=== PATIENT | female | born 1980 | race Caucasian/White ===

== ENCOUNTER 2020-08-07 10:54 | Emergency (ER) | payer OTHER ==
--- NOTE | 2020-08-07 11:47 | ER ---
Nurse's Notes [facility] Name: Melissa Tran Age: 39 yrs Sex: Female : 1980 Arrival Date: 08/07/2020 Time: 10:57 Bed 25 Private MD: Diagnosis: Cutaneous abscess of face Presentation: 08/07 11:23 Chief complaint: Patient states: about two days ago I noticed a large zit on my chin iw and i tried to squeeze it and a bunch or green stuff came out and i feel like its moving down under my chin. Coronavirus screen: Client denies travel out of the [place] in the last 14 days. Ebola Screen: Patient negative for fever greater than or equal to 101.5 degrees Fahrenheit, and additional compatible Ebola Virus Disease symptoms. 11:23 Method Of Arrival: Ambulatory iw 11:25 Initial Sepsis Screen: Does the patient meet any 2 criteria? No. Patient's initial iw sepsis screen is negative. Does the patient have a suspected source of infection? No. Patient's initial sepsis screen is negative. Risk Assessment: Do you want to hurt yourself or someone else? Patient reports no desire to harm self or others. Onset of symptoms was August 04, 2020. Care prior to arrival: None. 11:31 Acuity: CHRISTI 4 iw Triage Assessment: 11:26 General: Appears in no apparent distress. uncomfortable, well groomed, well developed, iw well nourished, Behavior is calm, cooperative. Pain: Complains of pain in submental area and right submandibular area Pain radiates to neck Pain currently is 10 out of 10 on a pain scale. Quality of pain is described as throbbing. EENT: Oral mucosa is moist. Poor dentition noted. Neuro: No deficits noted. Cardiovascular: No deficits noted. Respiratory: No deficits noted. GI: No deficits noted. No signs and/or symptoms were reported involving the gastrointestinal system. : No deficits noted. No signs and/or symptoms were reported regarding the genitourinary system. Derm: Skin is intact, is healthy with good turgor, has lesions on large open lesion to the bottom of the right chin. Musculoskeletal: No deficits noted. No signs and/or symptoms reported regarding the musculoskeletal system. 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 - Social history:: Smoking status: Patient reports the use of cigarette tobacco products, smokes one-half pack cigarettes per day. Screenin: Abuse screen: Denies threats or abuse. Denies injuries from another. Nutritional iw screening: No deficits noted. Tuberculosis screening: No symptoms or risk factors identified. Fall Risk None identified. Assessment: 11:30 General: Appears in no apparent distress. Behavior is calm, cooperative. Pain: iw Complains of pain in chin and neck. Neuro: Level of Consciousness is awake, alert, obeys commands, Oriented to person, place, time, situation. Cardiovascular: Patient's skin is warm and dry. Respiratory: Respiratory effort is even, unlabored. Derm: Skin is intact, is healthy with good turgor, Abscess located on chin and submental area. Vital Signs: 11:23 BP 108 / 80; Pulse 76; Resp 18; Temp 98.0; Pulse Ox 99% on R/A; Weight 72.57 kg (R); iw Height 5 ft. 6 in. (167.64 cm); Pain 10; 11:23 Body Mass Index 25.82 (72.57 kg, 167.64 cm) iw ED Course: 10:57 Patient arrived in ED. ag5 11:25 Triage completed. iw 11:26 Arm band placed on right wrist. iw 11:27 [facility]ill[facility] Wilson [facility]C [facility]. kb 11:27 Bebo Lawrence MD is Attending Physician. kb 11:30 Patient has correct armband on for positive identification. iw 11:37 Avelina Cabrera, RN is Primary Nurse. iw 12:01 No provider procedures requiring assistance completed. Patient did not have IV access iw during this emergency room visit. Administered Medications: No medications were administered Outcome: 11:47 Discharge ordered by . kb 12:01 Discharged to home ambulatory, with family. iw 12:01 Condition: good 12:01 Discharge instructions given to patient, Instructed on discharge instructions, follow up and referral plans. medication usage, Demonstrated understanding of instructions, follow-up care, medications, Prescriptions given X 1. 12:02 Patient left the ED. ca1 Signatures: Lillie Wilson, [employer] DEVELOPMENT TRAINER-Avelina Urias, RN RN iw Nahomi Urrutia RN RN ca1 Eugenio Hannah ag5 Corrections: (The following items were deleted from the chart) 11:32 11:25 Acuity: CHRISTI 3 yadira may
--- NOTE | 2020-08-07 11:47 | EDPHYS ---
Physician Documentation [facility] Name: Melissa Tran Age: 39 yrs Sex: Female : 1980 Arrival Date: 08/07/2020 Time: 10:57 Bed 25 Private MD: ED Physician Bebo Lawrence HPI: 08/07 12:04 This 39 yrs old Female presents to ER via Ambulatory with complaints of kb Facial Swelling, Boil. 12:04 The patient presents with an abscess of the chin. Description: draining, erythematous, kb swollen, warm. Onset: The symptoms/episode began/occurred 2 day(s) ago. Possible cause(s): pimple. Associated signs and symptoms: Pertinent positives: drainage, erythema, swelling, Pertinent negatives: foreign body sensation, fever, headache, nausea, shortness of breath, vomiting. Modifying factors: the symptoms are alleviated by nothing, the symptoms are aggravated by pressure, squeezing the lesion and expressing the contents, touching. Severity of symptoms: At their worst the symptoms were moderate, in the emergency department the symptoms are unchanged. The patient has not experienced similar symptoms in the past. The patient has not recently seen a physician. 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 - Social history:: Smoking status: Patient reports the use of cigarette tobacco products, smokes one-half pack cigarettes per day. ROS: 12:03 Constitutional: Negative for fever, chills, and weight loss, Cardiovascular: Negative kb for chest pain, palpitations, and edema, Respiratory: Negative for shortness of breath, cough, wheezing, and pleuritic chest pain, Abdomen/GI: Negative for abdominal pain, nausea, vomiting, diarrhea, and constipation, MS/Extremity: Negative for injury and deformity, Neuro: Negative for headache, weakness, numbness, tingling, and seizure. 12:03 Skin: Positive for abscess, of the chin. Exam: 12:03 Constitutional: This is a well developed, well nourished patient who is awake, alert, kb and in no acute distress. Head/Face: Normocephalic, atraumatic. Chest/axilla: Normal chest wall appearance and motion. Nontender with no deformity. No lesions are appreciated. Cardiovascular: Regular rate and rhythm with a normal S1 and S2. No gallops, murmurs, or rubs. Normal PMI, no JVD. No pulse deficits. Respiratory: Lungs have equal breath sounds bilaterally, clear to auscultation and percussion. No rales, rhonchi or wheezes noted. No increased work of breathing, no retractions or nasal flaring. Abdomen/GI: Soft, non-tender, with normal bowel sounds. No distension or tympany. No guarding or rebound. No evidence of tenderness throughout. MS/ Extremity: Pulses equal, no cyanosis. Neurovascular intact. Full, normal range of motion. Neuro: Awake and alert, GCS 15, oriented to person, place, time, and situation. Cranial nerves II-XII grossly intact. Motor strength 5/5 in all extremities. Sensory grossly intact. Cerebellar exam normal. Normal gait. 12:03 Skin: abscess, that is moderate sized, of the chin, with drainage, with induration. Vital Signs: 11:23 BP 108 / 80; Pulse 76; Resp 18; Temp 98.0; Pulse Ox 99% on R/A; Weight 72.57 kg (R); iw Height 5 ft. 6 in. (167.64 cm); Pain 10/10; 11:23 Body Mass Index 25.82 (72.57 kg, 167.64 cm) iw MDM: 11:39 Patient medically screened. [facility] 11:46 Data reviewed: vital signs, nurses notes. Data interpreted: Pulse oximetry: on room air kb is 99 %. Interpretation: normal. Counseling: I had a detailed discussion with the patient and/or guardian regarding: the historical points, exam findings, and any diagnostic results supporting the discharge/admit diagnosis, the need for outpatient follow up, a family practitioner, to return to the emergency department if symptoms worsen or persist or if there are any questions or concerns that arise at home. Administered Medications: No medications were administered Disposition: 13:06 Co-signature as Attending Physician, Bebo Lawrence MD I agree with the assessment and [facility] plan of care. Disposition: 08/07/20 11:47 Discharged to Home. Impression: Cutaneous abscess of face. - Condition is Stable. - Discharge Instructions: Skin Abscess, [id number]. - Prescriptions for Bactrim DS 800- 160 mg Oral Tablet - take 1 tablet by ORAL route every 12 hours for 10 days; 20 tablet. - Medication Reconciliation Form, Thank You Letter, Antibiotic Education, Prescription Opioid Use form. - Follow up: Emergency Department; When: As needed; Reason: Worsening of condition. Follow up: Private Physician; When: 2 - 3 days; Reason: Recheck today's complaints, Continuance of care, Re-evaluation by your physician. Signatures: Lillie Wilson, ROBERTA-C COMMUNITY OUTREACH SPECIALIST-Bebo Zee MD MD cha Williams, Irene, SIDRA RN iw Nahomi Urrutia RN RN ca1 Corrections: (The following items were deleted from the chart) 12:02 11:47 08/07/2020 11:47 Discharged to Home. Impression: Cutaneous abscess of face. ca1 Condition is Stable. Forms are Medication Reconciliation Form, Thank You Letter, Antibiotic Education, Prescription Opioid Use. Follow up: Emergency Department; When: As needed; Reason: Worsening of condition. Follow up: Private Physician; When: 2 - 3 days; Reason: Recheck today's complaints, Continuance of care, Re-evaluation by your physician. kb
[2020-08-07] MEDS ORDERED: SMZ./TMP. 800/160 MG TABLET ONE (12:09)
[2020-08-07] MEDS ORDERED: HYDROCODONE/APAP 7.5/325 MG TAB ONE (12:10)
[2020-08-07 19:37] VITALS: BP 108/80; TEMP 98; O2SAT 99
== END 2020-08-07 12:02 | disposition home or self-care (01) ==
LOC: ER 10:54
DX: L02.01 Cutaneous abscess of face (principal); F17.210 Nicotine dependence, cigarettes, uncomplicated
CPT/HCPCS: 99282

== ENCOUNTER 2020-08-09 10:12 | Emergency (ER) | payer OTHER ==
[2020-08-09] MEDS ORDERED: MORPHINE 2 MG/ML SYR ONE ×2 (11:25→12:28)
[2020-08-09] MEDS ORDERED: LIDOCAINE 1% W/EPI 1:100,000 MDV 20 ML VIAL ONE (11:25)
[2020-08-09] MEDS ORDERED: CLINDAMYCIN 900MG/D5W 900 MG/50 ML IVPB IV ONE (11:25)
--- NOTE | 2020-08-09 12:49 | EDPHYS ---
Physician Documentation [facility] Name: Melissa Tran Age: 39 yrs Sex: Female : 1980 Arrival Date: 08/09/2020 Time: 10:15 Bed 16 Private MD: ED Physician Tripp Arambula HPI: 08/09 11:00 This 39 yrs old Female presents to ER via Ambulatory with complaints of cp Abscess. 11:00 The patient presents with an abscess of the facial chin, The patient presents with cp cellulitis of the facial chin. Description: erythematous, swollen, tense, warm. Onset: The symptoms/episode began/occurred last week. 11:00 The patient has been recently seen at the [facility] Emergency cp Department, for similar complaints prescribed Bactrim antibiotic, 2 days ago. Historical: - Allergies: 10:30 No Known Allergies; sv - PMHx: 10:30 back melanoma; sv - PSHx: 10:30 None; sv - Immunization history:: Flu vaccine is not up to date. - Social history:: Smoking status: Patient reports the use of cigarette tobacco products, smokes one-half pack cigarettes per day. ROS: 11:05 Skin: Positive for erythema, swelling, of the right facial chin. cp 11:05 Constitutional: Negative for body aches, chills, fever. cp 11:05 Neck: Negative for pain with movement, pain at rest, stiffness. 11:05 All other systems are negative. Exam: 11:10 Constitutional: The patient appears in no acute distress, alert, awake, non-toxic, well cp developed, well nourished, uncomfortable. 11:10 Head/face: Noted is swelling, that is moderate, of the chin, tenderness, that is cp moderate, of the chin. 11:10 Eyes: Periorbital structures: appear normal, Conjunctiva: normal, no exudate, no injection, Lids and lashes: appear normal, bilaterally. 11:10 ENT: External ear(s): are unremarkable, Nose: is normal, Mouth: Lips: moist, Oral mucosa: moist, Posterior pharynx: is normal, airway is patent. 11:10 Neck: ROM/movement: is normal, is supple, without pain, no range of motions limitations. 11:10 Chest/axilla: Inspection: normal, Palpation: is normal, no crepitus, no tenderness. 11:10 Cardiovascular: Rate: normal, Rhythm: regular. 11:10 Respiratory: the patient does not display signs of respiratory distress, Respirations: normal, no use of accessory muscles, labored breathing, is not present. 11:10 Skin: abscess, of the right side facial chin, with surrounding cellulitis, that is mild. Vital Signs: 10:26 Temp 98.6(O); dh3 10:41 BP 112 / 63; Pulse 84; Resp 18; Pulse Ox 99% on R/A; em 11:57 BP 104 / 68; Pulse 74; Resp 18; Pulse Ox 98% on R/A; Pain 6/10; em Procedures: 13:00 I \T\ D: Incision and drainage was performed for an abscess of the right side of facial cp chin Prepped with Betadine, Anesthetized with 1 ml's 1% Lidocaine w/ Epi. Drained small amount purulent fluid. bloody fluid. the patient tolerated the procedure well, area aspirated with 18 gauge needle. MDM: 10:44 Patient medically screened. cp 12:45 Data reviewed: vital signs, nurses notes. 08/09 10:58 Order name: Wound Culture 08/09 10:55 Order name: I\T\D Setup; Complete Time: 11:21 cp 08/09 10:58 Order name: IV; Complete Time: 11:21 cp Administered Medications: 11:19 Drug: morphine 2 mg Route: IVP; Site: left antecubital; em 11:57 Follow up: Response: No adverse reaction; Marked relief of symptoms; Pain is decreased em 11:21 Drug: Clindamycin 900 mg Route: IVPB; Infused Over: 30 mins; Site: left antecubital; em 11:57 Follow up: IV Status: Completed infusion; IV Intake: 100ml em 12:18 Drug: morphine 2 mg Route: IVP; Site: left antecubital; em 13:11 Follow up: Response: No adverse reaction; Marked relief of symptoms; Pain is decreased em 12:47 Drug: Lidocaine-Epinephrine -1%: (1:100,000) 5 ml {Note: administered by PA. Bebo} em Volume: 20 ml; Route: Infiltration; Site: wound; 13:11 Follow up: Response: No adverse reaction; Marked relief of symptoms; Pain is decreased em Disposition: 08/10 06:58 Co-signature as Attending Physician, Tripp Arambula MD I agree with the assessment and kdr plan of care. Disposition: 08/09/20 12:49 Discharged to Home. Impression: Cellulitis of face, Cutaneous abscess of face. - Condition is Stable. - Discharge Instructions: Skin Abscess, Cellulitis, Adult, Incision and Drainage. - Prescriptions for Clindamycin HCl 300 mg Oral Capsule - take 1 capsule by ORAL route every 6 hours for 10 days; 40 capsule. Ibuprofen 800 mg Oral Tablet - take 1 tablet by ORAL route every 8 hours As needed take with food; 30 tablet. Tramadol 50 mg Oral Tablet - take 1 tablet by ORAL route every 8 hours as needed; 12 tablet. - Medication Reconciliation Form, Thank You Letter, Antibiotic Education, Prescription Opioid Use form. - Follow up: Abhishek Scherer MD; When: 1 - 2 days; Reason: Recheck today's complaints. - Problem is new. - Symptoms have improved. Signatures: Dispatcher [employer] Stacy Meredith RN RN Tripp Arabmula MD MD [facility] Peter Mcclain RN RN em Bebo Mccord PA PA cp Corrections: (The following items were deleted from the chart) 08/09 13:21 12:49 08/09/2020 12:49 Discharged to Home. Impression: Cellulitis of face; Cutaneous em abscess of face. Condition is Stable. Forms are Medication Reconciliation Form, Thank You Letter, Antibiotic Education, Prescription Opioid Use. Follow up: Abhishek Scherer; When: 1 - 2 days; Reason: Recheck today's complaints. Problem is new. Symptoms have improved. cp
--- NOTE | 2020-08-09 12:49 | ER ---
Nurse's Notes [facility] Name: Melissa Tran Age: 39 yrs Sex: Female : 1980 Arrival Date: 08/09/2020 Time: 10:15 Bed 16 Private MD: Diagnosis: Cellulitis of face;Cutaneous abscess of face Presentation: 08/09 10:28 Chief complaint: Patient states: pimple popped up about a week ago and then started sv swelling on Tuesday. Came here to the ER and was prescribed Bactrim. Since then has been having green drainage and swelling has increased. Coronavirus screen: Client denies travel out of the [place] in the last 14 days. At this time, the client does not indicate any symptoms associated with coronavirus-19. Ebola Screen: No symptoms or risks identified at this time. Initial Sepsis Screen: Does the patient meet any 2 criteria? No. Patient's initial sepsis screen is negative. Does the patient have a suspected source of infection? No. Patient's initial sepsis screen is negative. Risk Assessment: Do you want to hurt yourself or someone else? Patient reports no desire to harm self or others. Onset of symptoms was August 02, 2020. 10:28 Method Of Arrival: Ambulatory sv 10:28 Acuity: CHRISTI 3 sv Historical: - Allergies: 10:30 No Known Allergies; sv - PMHx: 10:30 back melanoma; sv - PSHx: 10:30 None; sv - Immunization history:: Flu vaccine is not up to date. - Social history:: Smoking status: Patient reports the use of cigarette tobacco products, smokes one-half pack cigarettes per day. Screenin:41 Abuse screen: Denies threats or abuse. Nutritional screening: No deficits noted. em Tuberculosis screening: No symptoms or risk factors identified. Fall Risk None identified. Assessment: 10:40 General: Appears in no apparent distress. uncomfortable, Behavior is calm, cooperative, em appropriate for age, Denies fever. Pain: Complains of pain in submental area Pain currently is 9 out of 10 on a pain scale. Pain began 2-3 days ago. Neuro: Level of Consciousness is awake, alert, obeys commands, Oriented to person, place, time, situation, Appropriate for age. Cardiovascular: Capillary refill < 3 seconds Patient's skin is warm and dry. Respiratory: Airway is patent Respiratory effort is even, unlabored, Respiratory pattern is regular, symmetrical. GI: Abdomen is flat, Patient currently denies nausea, vomiting. Derm: Skin is intact, is healthy with good turgor, Skin is pink, warm \T\ dry. Musculoskeletal: Capillary refill < 3 seconds, Range of motion: intact in all extremities. 11:57 Reassessment: Patient appears in no apparent distress at this time. Patient and/or em family updated on plan of care and expected duration. Pain level reassessed. Patient is alert, oriented x 3, equal unlabored respirations, skin warm/dry/pink. rates pain 6/10. 12:50 Reassessment: Patient appears in no apparent distress at this time. Patient and/or em family updated on plan of care and expected duration. Pain level reassessed. Patient is alert, oriented x 3, equal unlabored respirations, skin warm/dry/pink. rates pain 5/10 Patient states feeling better. Vital Signs: 10:26 Temp 98.6(O); dh3 10:41 BP 112 / 63; Pulse 84; Resp 18; Pulse Ox 99% on R/A; em 11:57 BP 104 / 68; Pulse 74; Resp 18; Pulse Ox 98% on R/A; Pain 6/10; em ED Course: 10:15 Patient arrived in ED. mr 10:23 Peter Mcclain, RN is Primary Nurse. em 10:30 Triage completed. sv 10:30 Arm band placed on Patient placed in an exam room, on a stretcher. sv 10:41 Patient has correct armband on for positive identification. em 10:43 Tripp Arambula MD is Attending Physician. kdr 10:44 Bebo Mccord PA is PHCP. cp 11:18 Initial lab(s) drawn, by mo, sent to lab. Inserted saline lock: 22 gauge in left Blood em collected. 12:48 Abhishek Scherer MD is Referral Physician. cp 12:50 Assist provider with I \T\ D: of an abscess on right mandibular area Set up I\T\D tray. em Performed by Bebo GUPTA Culture sent to lab. Dressing with Neosporin and 4X4s, Patient tolerated well. IV discontinued, intact, bleeding controlled, No redness/swelling at site. Pressure dressing applied. Administered Medications: 11:19 Drug: morphine 2 mg Route: IVP; Site: left antecubital; em 11:57 Follow up: Response: No adverse reaction; Marked relief of symptoms; Pain is decreased em 11:21 Drug: Clindamycin 900 mg Route: IVPB; Infused Over: 30 mins; Site: left antecubital; em 11:57 Follow up: IV Status: Completed infusion; IV Intake: 100ml em 12:18 Drug: morphine 2 mg Route: IVP; Site: left antecubital; em 13:11 Follow up: Response: No adverse reaction; Marked relief of symptoms; Pain is decreased em 12:47 Drug: Lidocaine-Epinephrine -1%: (1:100,000) 5 ml {Note: administered by PA. Bebo} em Volume: 20 ml; Route: Infiltration; Site: wound; 13:11 Follow up: Response: No adverse reaction; Marked relief of symptoms; Pain is decreased em Intake: 11:57 IV: 100ml; Total: 100ml. em Outcome: 12:49 Discharge ordered by . deya 13:20 Discharged to home ambulatory, with family. em 13:20 Condition: good 13:20 Discharge instructions given to patient, Instructed on discharge instructions, follow up and referral plans. medication usage, wound care, Demonstrated understanding of instructions, follow-up care, medications, wound care, Prescriptions given X 3. 13:21 Patient left the ED. em Signatures: Stacy Smith, SIDRA RN Tripp Arambula MD MD kdr Rivera, Mary mr Munoz, Edgar, RN RN Bebo Mccord PA PA cp [place], [place] [id number]
== END 2020-08-09 13:21 | disposition home or self-care (01) ==
LOC: ER 10:12
PROC: 0J910ZZ Drainage of Face Subcutaneous Tissue and Fascia, Open Approach (ICD-10-PCS; principal; 2020-08-09)
DX: L03.211 Cellulitis of face (principal); F17.210 Nicotine dependence, cigarettes, uncomplicated
CPT/HCPCS: 96365; 87070; 87205; 87077; 87186; 96375; 99284; 10060; J2270 ×2

== ENCOUNTER 2020-11-07 04:20 | Emergency (ER) | payer OTHER ==
[2020-11-07] MEDS ORDERED: CLINDAMYCIN 600MG/D5W 600 MG/50 ML BAG IV ONE (06:55)
[2020-11-07 07:23] LABS: Absolute Lymphocytes (CBC) 1.4 K/uL (0.7-4.9); Basophils % 0.2 % (0-1.3); Hematocrit 39.8 % (36.0-45.0); Lymphocytes % 14.4 % (15.3-44.8); MPV 7.5 fL (7.6-11.3); RBC Red Blood Cell Count 4.68 M/uL (3.86-4.86)
[2020-11-07 07:30] LABS: ALT/SGPT 53 U/L (12-78); AST/SGOT 26 U/L (15-37); Albumin 3.4 g/dL (3.4-5.0); Alkaline Phosphatase 74 U/L (45-117); BUN Blood Urea Nitrogen 8 mg/dL (7-18); Bicarbonate 27 mmol/L (21-32); Bilirubin Direct 0.1 mg/dL (0-0.2); Bilirubin Total 0.4 mg/dL (0.2-1.0); Glucose Level 85 mg/dL (74-106); Lipase 47 U/L (73-393); Potassium 3.7 mmol/L (3.5-5.1); Protein, Total 7.2 g/dL (6.4-8.2); Sodium Level 139 mmol/L (136-145)
[2020-11-07] MEDS ORDERED: ONDANSETRON 4 MG/2 ML VIAL ONE (08:12)
[2020-11-07] MEDS ORDERED: MORPHINE 4 MG/ML SYR ONE (08:12)
[2020-11-07] MEDS ORDERED: CEFAZOLIN/SWI 1gm 1 GM/10 ML SYR ONE (08:12)
--- NOTE | 2020-11-07 09:12 | ER ---
Nurse's Notes [facility] Name: Melissa Tran Age: 40 yrs Sex: Female : 1980 Arrival Date: 11/07/2020 Time: 04:21 Bed 20 Private MD: Diagnosis: Cellulitis of right axilla Presentation: 11/07 04:34 Chief complaint: Patient states: she thinks she has an abscess under right arm which bb started a couple of days ago now it is getting much bigger and spreading. Coronavirus screen: At this time, the client does not indicate any symptoms associated with coronavirus-19. Ebola Screen: No symptoms or risks identified at this time. Initial Sepsis Screen: Does the patient meet any 2 criteria? No. Patient's initial sepsis screen is negative. Does the patient have a suspected source of infection? No. Patient's initial sepsis screen is negative. Risk Assessment: Do you want to hurt yourself or someone else? Patient reports no desire to harm self or others. Onset of symptoms was November 05, 2020. 04:34 Method Of Arrival: Ambulatory bb 04:34 Acuity: CHRISTI 3 bb Triage Assessment: 04:39 General: Appears uncomfortable, Behavior is calm, cooperative. Pain: Complains of pain bb in right arm. Neuro: Level of Consciousness is awake, alert, obeys commands, Oriented to person, place, time, situation. Respiratory: Airway is patent Respiratory effort is even, unlabored, Respiratory pattern is regular. Derm: Abscess located on right axilla is with surrounding erythema. 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 - Social history:: Smoking status: Patient reports the use of cigarette tobacco products, smokes one pack cigarettes per day. Screenin:55 Abuse screen: Denies threats or abuse. Denies injuries from another. Nutritional sf screening: No deficits noted. Tuberculosis screening: No symptoms or risk factors identified. Never had TB. Possible symptoms: None Risk factors: None. Fall Risk None identified. No fall in past 12 months (0 pts). No secondary diagnosis (0 pts). IV access (20 points). Ambulatory Aid- None/Bed Rest/Nurse Assist (0 pts). Gait- Normal/Bed Rest/Wheelchair (0 pts) Mental Status- Oriented to own ability (0 pts). Total Verma Fall Scale indicates No Risk (0-24 pts). Assessment: 06:50 General: Appears in no apparent distress. comfortable, Behavior is calm, cooperative, sf appropriate for age. Pain: Complains of pain in right axilla. Neuro: No deficits noted. Level of Consciousness is awake, alert, obeys commands, Oriented to person, place, time, situation, Appropriate for age. Cardiovascular: No deficits noted. Patient's skin is warm and dry. Respiratory: Airway is patent Respiratory effort is even, unlabored, Respiratory pattern is regular, symmetrical. Derm: Abscess located on right axilla. 08:09 Reassessment: Patient appears in no apparent distress at this time. Patient and/or iw family updated on plan of care and expected duration. Pain level reassessed. Patient is alert, oriented x 3, equal unlabored respirations, skin warm/dry/pink. pt medicated for pain, awaiting US. Vital Signs: 04:34 BP 122 / 87; Pulse 108; Resp 16 S; Temp 98.2(O); Pulse Ox 100% on R/A; Weight 79.38 kg bb (R); Height 5 ft. 6 in. (167.64 cm) (R); Pain 8/10; 04:34 Body Mass Index 28.25 (79.38 kg, 167.64 cm) bb ED Course: 04:21 Patient arrived in ED. cl3 04:37 Triage completed. bb 04:39 Arm band placed on Patient placed in waiting room, Patient notified of wait time. bb 05:59 Jeremias Smiley, SIDRA is Primary Nurse. sf 06:27 Charly Pack MD is Attending Physician. tw4 06:40 Jeremias Smiley, RN is Primary Nurse. sf 06:55 Patient has correct armband on for positive identification. Bed in low position. Call sf light in reach. Side rails up X 1. Pulse ox on. NIBP on. Door closed. Noise minimized. Lights dimmed. 06:55 Inserted saline lock: 22 gauge in left forearm, using aseptic technique. Blood sf collected. 07:08 Primary Nurse role handed off by Jeremias Smiley, SIDRA bp 07:08 Rodger Falcon, SIDRA is Primary Nurse. bp 07:12 Basic Metabolic Panel Sent. sf 07:22 Attending Physician role handed off by Charly Pack MD kdr 07:22 Tripp Arambula MD is Attending Physician. kdr 09:03 Extrmty Nonvasular Limited In Process Unspecified. EDMS 09:27 Primary Nurse role handed off by Rodger Falcon RN iw 09:27 Avelina Cabrera RN is Primary Nurse. iw 09:27 No provider procedures requiring assistance completed. IV discontinued, intact, iw bleeding controlled, No redness/swelling at site. Pressure dressing applied. Administered Medications: 07:42 Drug: Cleocin 600 mg Route: IVPB; Infused Over: 30 mins; Site: left forearm; iw 08:15 Follow up: IV Status: Completed infusion iw 08:04 Drug: Ancef 1 grams Route: IVPB; Site: left forearm; iw 08:06 Follow up: IV Status: Completed infusion iw 08:04 Drug: morphine 4 mg Route: IVP; Site: right forearm; iw 08:30 Follow up: Response: No adverse reaction; Pain is decreased iw 08:04 Drug: Zofran (Ondansetron) 4 mg Route: IVP; Site: left forearm; iw 08:30 Follow up: Response: No adverse reaction iw Outcome: 09:12 Discharge ordered by . kdr 09:27 Discharged to home ambulatory. iw 09:27 Condition: good 09:27 Discharge instructions given to patient, Instructed on discharge instructions, follow up and referral plans. medication usage, Demonstrated understanding of instructions, follow-up care, medications, Prescriptions given X 2. 09:27 Patient left the ED. iw 16:25 Patient left the ED. eb Signatures: Dispatcher [employer] EDMS Tripp Arambula MD MD kdr Shelli Gallegos RN RN bb Avelina Cabrera RN RN iw Rodger Falcon RN RN bp Charly Pack MD MD tw4 Claudia Harris Charde 3 Smiley, Jeremias, RN RN sf
--- NOTE | 2020-11-07 09:12 | EDPHYS ---
Physician Documentation [facility] Name: Melissa Tran Age: 40 yrs Sex: Female : 1980 Arrival Date: 11/07/2020 Time: 04:21 Bed 20 Private MD: ED Physician Tripp Arambula HPI: 11/07 09:08 This 40 yrs old Female presents to ER via Ambulatory with complaints of kdr Abcess Underarm. 09:08 The patient presents with cellulitis of the right axilla, the patient presents with a kdr swollen area of the right axilla. Description: erythematous, raised, swollen, tense, warm. Onset: The symptoms/episode began/occurred gradually, 2 day(s) ago. Possible cause(s): unknown. Associated signs and symptoms: The patient has no apparent associated signs or symptoms. Modifying factors: the symptoms are alleviated by nothing, the symptoms are aggravated by movement, pressure, squeezing the lesion and expressing the contents, touching. Severity of symptoms: At their worst the symptoms were mild, moderate, in the emergency department the symptoms have improved, mildly. The patient has experienced similar episodes in the past, a few times, but today's symptoms are worse. The patient has not recently seen a physician. 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 - Social history:: Smoking status: Patient reports the use of cigarette tobacco products, smokes one pack cigarettes per day. ROS: 09:08 Constitutional: Negative for fever, chills, and weight loss. kdr 09:08 Skin: Positive for abscess, cellulitis, erythema, swelling, of the right axilla. Exam: 09:08 Constitutional: This is a well developed, well nourished patient who is awake, alert, kdr and in no acute distress. Head/Face: Normocephalic, atraumatic. 09:08 Skin: cellulitis, that is moderate, that is severe, confluent, well demarcated, on the right axilla. Vital Signs: 04:34 BP 122 / 87; Pulse 108; Resp 16 S; Temp 98.2(O); Pulse Ox 100% on R/A; Weight 79.38 kg (R); Height 5 ft. 6 in. (167.64 cm) (R); Pain 8/10; 04:34 Body Mass Index 28.25 (79.38 kg, 167.64 cm) MDM: 09:08 Data reviewed: vital signs, nurses notes, radiologic studies, ultrasound. Counseling: I kdr had a detailed discussion with the patient and/or guardian regarding: the historical points, exam findings, and any diagnostic results supporting the discharge/admit diagnosis, radiology results, the need for outpatient follow up. 09:12 Patient medically screened. kdr 11:17 ED course: Left a message for her to call back regarding her US findings. kdr 11/07 05:57 Order name: Basic Metabolic Panel tw4 11/07 05:57 Order name: CBC with Diff; Complete Time: 09:26 tw4 11/07 05:57 Order name: Hepatic Function; Complete Time: 09:26 tw4 11/07 05:57 Order name: Lipase; Complete Time: 09:26 tw4 11/07 05:57 Order name: Basic Metabolic Panel; Complete Time: 09:26 EDMS 11/07 06:51 Order name: Blood Culture Adult (2) 11/07 05:57 Order name: IV Saline Lock; Complete Time: 07:12 tw4 11/07 05:57 Order name: Labs collected and sent; Complete Time: 07:12 4 11/07 07:44 Order name: US Extrmty Nonvasular Limited; Complete Time: 13:10 kdr Administered Medications: 07:42 Drug: Cleocin 600 mg Route: IVPB; Infused Over: 30 mins; Site: left forearm; iw 08:15 Follow up: IV Status: Completed infusion iw 08:04 Drug: Ancef 1 grams Route: IVPB; Site: left forearm; iw 08:06 Follow up: IV Status: Completed infusion iw 08:04 Drug: morphine 4 mg Route: IVP; Site: right forearm; iw 08:30 Follow up: Response: No adverse reaction; Pain is decreased iw 08:04 Drug: Zofran (Ondansetron) 4 mg Route: IVP; Site: left forearm; iw 08:30 Follow up: Response: No adverse reaction iw Disposition: 11/07/20 09:12 Discharged to Home. Impression: Cellulitis of right axilla. - Condition is Stable. - Discharge Instructions: Cellulitis, Adult, [id number]. - Prescriptions for Keflex 500 mg Oral Capsule - take 1 capsule by ORAL route every 6 hours for 10 days; 40 capsule. Tramadol 50 mg Oral Tablet - take 1 tablet by ORAL route every 8 hours as needed; 12 tablet. - Medication Reconciliation Form, Thank You Letter, Antibiotic Education, Prescription Opioid Use form. - Follow up: Private Physician; When: 2 - 3 days; Reason: If symptoms return, Further diagnostic work-up, Recheck today's complaints, Continuance of care, Re-evaluation by your physician. - Problem is new. - Symptoms are unchanged. Signatures: Dispatcher [employer] EDTripp Elizabeth MD MD [facility] [address] Shelli Gallegos RN RN bb Avelina Cabrera RN RN Charly Pack MD MD tw Claudia Harris Corrections: (The following items were deleted from the chart) 09:27 09:12 11/07/2020 09:12 Discharged to Home. Impression: Cellulitis of right axilla. iw Condition is Stable. Forms are Medication Reconciliation Form, Thank You Letter, Antibiotic Education, Prescription Opioid Use. Follow up: Private Physician; When: 2 - 3 days; Reason: If symptoms return, Further diagnostic work-up, Recheck today's complaints, Continuance of care, Re-evaluation by your physician. Problem is new. Symptoms are unchanged. kdr 16:25 09:27 11/07/2020 09:12 Discharged to Home. Impression: Cellulitis of right axilla. eb Condition is Stable. Discharge Instructions: Cellulitis, Adult, [id number]. Prescriptions for Keflex 500 mg Oral Capsule - take 1 capsule by ORAL route every 6 hours for 10 days; 40 capsule, Tramadol 50 mg Oral Tablet - take 1 tablet by ORAL route every 8 hours as needed; 12 tablet. and Forms are Medication Reconciliation Form, Thank You Letter, Antibiotic Education, Prescription Opioid Use. Follow up: Private Physician; When: 2 - 3 days; Reason: If symptoms return, Further diagnostic work-up, Recheck today's complaints, Continuance of care, Re-evaluation by your physician. Problem is new. Symptoms are unchanged. iw
[2020-11-07 09:43] VITALS: BP 122/87; TEMP 98.2; O2SAT 100
--- NOTE | 2020-11-07 10:17 | RAD REPORT ---
EXAM DESCRIPTION: US - Extremity Nonvascular Limited - 11/07/2020 9:04 am CLINICAL HISTORY: SWELLING Pain and swelling COMPARISON: No comparisons TECHNIQUE: Real-time sonographic evaluation of the area of interest was performed. FINDINGS: Subcutaneous tissues and subcutaneous fat is edematous with linear areas of fluid noted. M ultiple pockets of fluid collection is seen in the upper arm region deep to the skin within the fat w hich is probably infected subcutaneous abscess. Dr Arambula in the Er was notified at the time of dictation.
== END 2020-11-07 16:25 | disposition home or self-care (01) ==
LOC: ER 04:20
DX: L03.111 Cellulitis of right axilla (principal); F32.9 Major depressive disorder, single episode, unspecified; F17.210 Nicotine dependence, cigarettes, uncomplicated
CPT/HCPCS: 87040 ×2; 85025; 80048; 36415; 80076; 83690; 76882; 99284; J0690; J2405

== ENCOUNTER 2020-11-08 04:24 | Emergency (ER) | payer OTHER ==
[2020-11-08] MEDS ORDERED: LIDOCAINE 1% MPF 30 ML VIAL ONE (05:01)
[2020-11-08] MEDS ORDERED: ONDANSETRON 4 MG/2 ML VIAL ONE (05:06)
[2020-11-08] MEDS ORDERED: MORPHINE 4 MG/ML SYR ONE (05:06)
[2020-11-08] MEDS ORDERED: NA CHLORIDE 0.9% 1,000 ML ONE (05:08)
[2020-11-08 05:25] LABS: Protime INR 0.98
[2020-11-08] MEDS ORDERED: CLINDAMYCIN 900MG/D5W 900 MG/50 ML IVPB IV ONE (05:26)
[2020-11-08 05:33] LABS: ALT/SGPT 42 U/L (12-78); AST/SGOT 24 U/L (15-37); Albumin 3.3 g/dL (3.4-5.0); Alkaline Phosphatase 70 U/L (45-117); BUN Blood Urea Nitrogen 8 mg/dL (7-18); Bicarbonate 27 mmol/L (21-32); Bilirubin Direct 0.2 mg/dL (0-0.2); Bilirubin Total 0.5 mg/dL (0.2-1.0); Glucose Level 87 mg/dL (74-106); Protein, Total 6.7 g/dL (6.4-8.2); Sodium Level 137 mmol/L (136-145)
[2020-11-08 05:42] LABS: Absolute Lymphocytes (CBC) 2.6 K/uL (0.7-4.9); Basophils % 0.2 % (0-1.3); Hematocrit 36.5 % (36.0-45.0); Lymphocytes % 20.2 % (15.3-44.8); MPV 8.4 fL (7.6-11.3)
[2020-11-08 06:16] LABS: Platelet Estimate ADEQ; White Blood Cell Scan OK (OK)
[2020-11-08 06:18] LABS: Blood Morphology Comment NOT SEEN (NOT SEEN)
--- NOTE | 2020-11-08 06:33 | EDPHYS ---
Physician Documentation [facility] Name: Melissa Tran Age: 40 yrs Sex: Female : 1980 Arrival Date: 11/08/2020 Time: 04:27 Bed 5 Private MD: ED Physician Roni Hurley HPI: 11/08 05:09 This 40 yrs old Female presents to ER via Ambulatory with complaints of CYST mh7 UNDER ARM. 05:09 The patient presents with an abscess of the Right axilla. Description: erythematous, mh7 fluctuant, raised, swollen, tense, warm. Onset: The symptoms/episode began/occurred 3 day(s) ago. Possible cause(s): unknown. 05:10 Associated signs and symptoms: Pertinent positives: erythema, swelling, Pertinent mh7 negatives: discharge, drainage, foreign body sensation, fever, headache, nausea, shortness of breath, vomiting. Modifying factors: the symptoms are alleviated by nothing, the symptoms are aggravated by nothing. Severity of symptoms: At their worst the symptoms were moderate, yesterday, in the emergency department the symptoms are unchanged. The patient has been recently seen at the [facility] Emergency Department, yesterday. 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 - Social history:: Smoking status: Patient reports the use of cigarette tobacco products, smokes one-half pack cigarettes per day, Patient uses alcohol, occasionally. Patient/guardian denies using street drugs, IV drugs. ROS: 05:10 Constitutional: Negative for fever, chills, and weight loss, Eyes: Negative for injury, mh7 pain, redness, and discharge, ENT: Negative for injury, pain, and discharge, Neck: Negative for injury, pain, and swelling, Cardiovascular: Negative for chest pain, palpitations, and edema, Respiratory: Negative for shortness of breath, cough, wheezing, and pleuritic chest pain, Abdomen/GI: Negative for abdominal pain, nausea, vomiting, diarrhea, and constipation, Back: Negative for injury and pain, : Negative for injury, bleeding, discharge, and swelling, Neuro: Negative for headache, weakness, numbness, tingling, and seizure, Psych: Negative for depression, anxiety, suicide ideation, homicidal ideation, and hallucinations, Allergy/Immunology: Negative for hives, rash, and allergies, Endocrine: Negative for neck swelling, polydipsia, polyuria, polyphagia, and marked weight changes, Hematologic/Lymphatic: Negative for swollen nodes, abnormal bleeding, and unusual bruising. Exam: 05:10 Head/Face: Normocephalic, atraumatic. Eyes: Pupils equal round and reactive to light, mh7 extra-ocular motions intact. Lids and lashes normal. Conjunctiva and sclera are non-icteric and not injected. Cornea within normal limits. Periorbital areas with no swelling, redness, or edema. Neck: Trachea midline, no thyromegaly or masses palpated, and no cervical lymphadenopathy. Supple, full range of motion without nuchal rigidity, or vertebral point tenderness. No Meningismus. 05:10 Respiratory: Lungs have equal breath sounds bilaterally, clear to auscultation and percussion. No rales, rhonchi or wheezes noted. No increased work of breathing, no retractions or nasal flaring. Abdomen/GI: Soft, non-tender, with normal bowel sounds. No distension or tympany. No guarding or rebound. No evidence of tenderness throughout. Back: No spinal tenderness. No costovertebral tenderness. Full range of motion. 05:10 Neuro: Awake and alert, GCS 15, oriented to person, place, time, and situation. Cranial nerves II-XII grossly intact. Motor strength 5/5 in all extremities. Sensory grossly intact. Cerebellar exam normal. Normal gait. Psych: Awake, alert, with orientation to person, place and time. Behavior, mood, and affect are within normal limits. 05:10 Constitutional: The patient appears in no acute distress, alert, awake, uncomfortable. 05:10 Chest/axilla: Palpation: tenderness, that is moderate, of the right axilla, Axilla: abscess, that is moderate in size, of the right axilla, with surrounding erythema, with pointing, with tenderness, cellulitis, that is moderate, of the right axilla, lymphadenopathy, is not appreciated, mass, is not appreciated, Lymph nodes: lymphadenopathy is not appreciated. 05:10 Cardiovascular: Rate: tachycardic, Rhythm: regular, Pulses: no pulse deficits are appreciated, Heart sounds: normal, normal S1and S2, Edema: is not appreciated, JVD: is not appreciated. 05:10 Musculoskeletal/extremity: Extremities: noted in the right axilla: swelling, tenderness, ROM: intact in all extremities, Circulation is intact in all extremities. Pulses: are normal with no appreciated deficits, Perfusion: the patient is normally perfused throughout, Perfusion: the extremity is normally perfused throughout, Sensation intact. Compartment Syndrome exam of affected extremity: is normal. no numbness, no tingling, no sensation deficit, no palor, no weak pulses, Joints: All joints appear normal with full range of motion. 05:10 Skin: abscess, that is moderate sized, of the right axilla, with fluctuance, that is moderate, with induration, with surrounding cellulitis, cellulitis, that is moderate, well demarcated, on the right medial upper arm, induration, that is moderate is noted, located on the right axilla. Vital Signs: 04:38 BP 118 / 80; Pulse 123; Resp 18; Temp 99.1; Pulse Ox 100% on R/A; Weight 72.57 kg; mg2 Height 5 ft. 5 in. (165.10 cm); Pain 10/10; 05:16 BP 120 / 69; Pulse 109; Resp 18; Pulse Ox 100% on R/A; mg2 06:31 BP 111 / 67; Pulse 95; Resp 16; Pulse Ox 99% ; rr5 04:38 Body Mass Index 26.63 (72.57 kg, 165.10 cm) mg2 Procedures: 05:48 I \T\ D: Incision and drainage was performed for an abscess of the right axilla. Prepped [facility] with Betadine, Anesthetized with 6 ml's 1% Lidocaine. Incised with #11 blade. Drained moderate amount purulent fluid. serosanguinous fluid. Loculations removed. Cultures obtained. Abscess cavity explored. Packed with iodoform gauze, Dressing: sterile 4x4 gauze, non-Adherent dressing, the patient tolerated the procedure well. MDM: 06:28 Differential diagnosis: abscess, allergic reaction, cellulitis, insect bite. Data [facility] reviewed: vital signs, nurses notes, lab test result(s), CBC, electrolytes. Data interpreted: Pulse oximetry: on room air is 100 %. Interpretation: normal. Counseling: I had a detailed discussion with the patient and/or guardian regarding: the historical points, exam findings, and any diagnostic results supporting the discharge/admit diagnosis, lab results, the need for outpatient follow up, to return to the emergency department if symptoms worsen or persist or if there are any questions or concerns that arise at home. Response to treatment: the patient's symptoms have markedly improved after treatment. Refusal of service: The patient/guardian displays adequate decision making capability and despite a detailed discussion of alternatives, benefits, risks, and consequences refuses: Admission to the hospital for further work-up and treatment. 06:32 Patient medically screened. 11/08 04:48 Order name: CBC with Diff 11/08 04:48 Order name: Basic Metabolic Panel; Complete Time: 05:48 11/08 04:48 Order name: LFT's; Complete Time: 05:48 11/08 04:48 Order name: Protime (+inr); Complete Time: 05:48 11/08 04:48 Order name: Ptt, Activated; Complete Time: 05:48 11/08 05:08 Order name: Wound Culture 11/08 06:17 Order name: CBC Smear Scan EDMS Administered Medications: 04:55 Drug: NS 0.9% 1000 ml Route: IV; Rate: 1000 ml; Site: left forearm; mg2 06:38 Follow up: Response: No adverse reaction; IV Status: Completed infusion; IV Intake: rr5 1000ml 04:55 Drug: morphine 4 mg Route: IVP; Site: left forearm; mg2 06:11 Follow up: Response: No adverse reaction mg2 04:56 Drug: Zofran (Ondansetron) 4 mg Route: IVP; Site: left forearm; mg2 06:10 Follow up: Response: No adverse reaction mg2 05:09 Drug: Clindamycin 900 mg Route: IVPB; Infused Over: 30 mins; Site: left forearm; rr5 06:11 Follow up: Response: No adverse reaction; IV Status: Completed infusion mg2 Disposition: 11/08/20 06:32 Discharged to Home. Impression: Right Axilla Abscess, Right Upper Extremity Cellulitis. - Condition is Stable. - Discharge Instructions: Skin Abscess, [id number]-[id number], Cellulitis, Adult, Qzfg-[id number]. - Prescriptions for Bactrim DS 800- 160 mg Oral Tablet - take 1 tablet by ORAL route every 12 hours for 10 days; 20 tablet. - Medication Reconciliation Form, Thank You Letter, Antibiotic Education, Prescription Opioid Use form. - Follow up: Private Physician; When: 1 - 2 days; Reason: Wound Recheck, Worsening of condition, Recheck today's complaints, Continuance of care, Re-evaluation by your physician. Follow up: Julius Canada MD; When: 48 Hours; Reason: Worsening of condition, Recheck today's complaints. Follow up: Emergency Department; When: 48 Hours; Reason: Wound Recheck, Worsening of condition. - Problem is an ongoing problem. - Symptoms have improved. Signatures: Dispatcher [employer] EDMS Slick Merino RN RN mg2 Gallo Brown RN RN rr5 Roni Hurley MD MD mh7 Corrections: (The following items were deleted from the chart) 06:39 06:32 11/08/2020 06:32 Discharged to Home. Impression: Right Axilla Abscess; Right rr5 Upper Extremity Cellulitis. Condition is Stable. Forms are Medication Reconciliation Form, Thank You Letter, Antibiotic Education, Prescription Opioid Use. Follow up: Private Physician; When: 1 - 2 days; Reason: Wound Recheck, Worsening of condition, Recheck today's complaints, Continuance of care, Re-evaluation by your physician. Follow up: Dr. Julius Canada; When: 48 Hours; Reason: Worsening of condition, Recheck today's complaints. Follow up: Emergency Department; When: 48 Hours; Reason: Wound Recheck, Worsening of condition. Problem is an ongoing problem. Symptoms have improved. mh7
--- NOTE | 2020-11-08 06:33 | ER ---
Nurse's Notes [facility] Name: Melissa Tran Age: 40 yrs Sex: Female : 1980 Arrival Date: 11/08/2020 Time: 04:27 Bed 5 Private MD: Diagnosis: Right Axilla Abscess;Right Upper Extremity Cellulitis Presentation: 11/08 04:38 Chief complaint: Patient states: i was here yesterday, i have right arm cysts/abscess, mg2 they did some test on me and DR Arambula called me and asked me to come back. Coronavirus screen: Client denies travel out of the [place] in the last 14 days. At this time, the client does not indicate any symptoms associated with coronavirus-19. Ebola Screen: No symptoms or risks identified at this time. Initial Sepsis Screen: Does the patient meet any 2 criteria? HR > 90 bpm. Does the patient have a suspected source of infection? Yes: Skin breakdown/wound. Risk Assessment: Do you want to hurt yourself or someone else? Patient reports no desire to harm self or others. Onset of symptoms was November 07, 2020. 04:38 Method Of Arrival: Ambulatory mg2 04:38 Acuity: CHRISTI 3 mg2 BRANCH LEAD: 05:17 lmp- last month mg2 Historical: - Allergies: 04:42 Adhesives; mg2 - Home Meds: 04:42 Zoloft 100 mg Oral tab 1 tab once daily [Active]; mg2 - PMHx: 04:42 back melanoma; Depression; mg2 - PSHx: 04:42 Tubal ligation; mg2 - Immunization history:: Flu vaccine status is unknown. - Social history:: Smoking status: Patient reports the use of cigarette tobacco products, smokes one-half pack cigarettes per day, Patient uses alcohol, occasionally. Patient/guardian denies using street drugs, IV drugs. Screenin:39 Abuse screen: Denies threats or abuse. Denies injuries from another. Nutritional rr5 screening: No deficits noted. Tuberculosis screening: No symptoms or risk factors identified. Fall Risk None identified. Total Verma Fall Scale indicates No Risk (0-24 pts). Assessment: 04:39 General: Appears in no apparent distress. uncomfortable, Behavior is calm, cooperative, rr5 appropriate for age. Pain: Complains of pain in right tricep Pain currently is 10 out of 10 on a pain scale. Quality of pain is described as aching, Pain began gradually, Is intermittent. Neuro: Level of Consciousness is awake, alert, obeys commands, Oriented to person, place, time, situation. Cardiovascular: Capillary refill < 3 seconds Patient's skin is warm and dry. Respiratory: Airway is patent Respiratory effort is even, unlabored, Respiratory pattern is regular, symmetrical. GI: No signs and/or symptoms were reported involving the gastrointestinal system. : No signs and/or symptoms were reported regarding the genitourinary system. EENT: No signs and/or symptoms were reported regarding the EENT system. Derm: Skin is intact, is healthy with good turgor, Skin temperature is warm Wound noted right tricep Wound is swelling,redness around the area. Musculoskeletal: Capillary refill < 3 seconds. 05:30 Reassessment: Patient appears in no apparent distress at this time. Patient is alert, rr5 oriented x 3, equal unlabored respirations, skin warm/dry/pink. 06:37 Reassessment: Patient appears in no apparent distress at this time. Patient is alert, rr5 oriented x 3, equal unlabored respirations, skin warm/dry/pink. discharge instruction given and explained without complaints made Patient states feeling better. Patient states symptoms have improved. Vital Signs: 04:38 BP 118 / 80; Pulse 123; Resp 18; Temp 99.1; Pulse Ox 100% on R/A; Weight 72.57 kg; mg2 Height 5 ft. 5 in. (165.10 cm); Pain 10/10; 05:16 BP 120 / 69; Pulse 109; Resp 18; Pulse Ox 100% on R/A; mg2 06:31 BP 111 / 67; Pulse 95; Resp 16; Pulse Ox 99% ; rr5 04:38 Body Mass Index 26.63 (72.57 kg, 165.10 cm) mg2 ED Course: 04:27 Patient arrived in ED. cf2 04:29 Roni Hurley MD is Attending Physician. mh7 04:35 Slick Merino, SIDRA is Primary Nurse. mg2 04:39 Patient has correct armband on for positive identification. Bed in low position. Call rr5 light in reach. 04:41 Triage completed. mg2 04:43 Arm band placed on. mg2 05:00 Inserted saline lock: 20 gauge in left forearm, using aseptic technique. rr5 05:00 Assist provider with I \T\ D: of an abscess on right upper arm near to axilla Set up I\T\D mg 2 tray. Performed by Roni Hurley MD Culture sent to lab. Wound packed. iodoform gauze, Dressing with 4X4s, Patient tolerated well. 05:00 Wound culture swab sent to lab. IV discontinued, intact, bleeding controlled, No rr5 redness/swelling at site. Pressure dressing applied. 06:30 Julius Canada MD is Referral Physician. mh7 Administered Medications: 04:55 Drug: NS 0.9% 1000 ml Route: IV; Rate: 1000 ml; Site: left forearm; mg2 06:38 Follow up: Response: No adverse reaction; IV Status: Completed infusion; IV Intake: rr5 1000ml 04:55 Drug: morphine 4 mg Route: IVP; Site: left forearm; mg2 06:11 Follow up: Response: No adverse reaction mg2 04:56 Drug: Zofran (Ondansetron) 4 mg Route: IVP; Site: left forearm; mg2 06:10 Follow up: Response: No adverse reaction mg2 05:09 Drug: Clindamycin 900 mg Route: IVPB; Infused Over: 30 mins; Site: left forearm; rr5 06:11 Follow up: Response: No adverse reaction; IV Status: Completed infusion mg2 Intake: 06:38 IV: 1000ml; Total: 1000ml. rr5 Outcome: 06:32 Discharge ordered by . mh7 06:38 Discharged to home ambulatory. rr5 06:38 Condition: stable 06:38 Discharge instructions given to patient, Instructed on discharge instructions, follow up and referral plans. medication usage, Demonstrated understanding of instructions, follow-up care, medications, Prescriptions given X 1. 06:39 Patient left the ED. rr5 Addendum: 11/10/2020 15:59 Addendum: Culture Results: Positive wound culture. No further action required. Bacteria a a5 sensitive to prescribed antibiotic. Signatures: Elena Rubi, RN RN aa5 Slick Merino RN RN mg2 Gallo Brown RN RN rr5 Tremayne Louie 2 Roni Hurley MD MD 7
[2020-11-08 06:44] VITALS: TEMP 99.1
[2020-11-08 06:47] VITALS: BP 111/67; O2SAT 99
== END 2020-11-08 06:39 | disposition home or self-care (01) ==
LOC: ER 04:24
PROC: 0J9D0ZZ Drainage of Right Upper Arm Subcutaneous Tissue and Fascia, Open Approach (ICD-10-PCS; principal; 2020-11-08)
DX: L03.111 Cellulitis of right axilla (principal); F32.9 Major depressive disorder, single episode, unspecified; F17.210 Nicotine dependence, cigarettes, uncomplicated; Z91.048 Other nonmedicinal substance allergy status
CPT/HCPCS: 96365; 96361; 87070; 85025; 80048; 36415; 87205; 85610; 80076; 85730; 87077; 87186; 96375; 99284; 10060; J7030; J2405

== ENCOUNTER 2021-12-17 22:44 | Emergency (ER) | payer SELFPAY ==
--- NOTE | 2021-12-18 03:48 | ER ---
Nurse's Notes [facility] Name: Melissa Tran Age: 41 yrs Sex: Female : 1980 Arrival Date: 12/17/2021 Time: 22:54 Bed Waiting Private MD: Diagnosis: Assessment: 12/17 23:53 General: Told EMS " I was going to go to [facility] or come here, just put me in the lobby so tw5 I can leave." Patient left AMA before being seen by triage. . ED Course: :54 Patient arrived in ED. kc5 Administered Medications: No medications were administered Outcome: 23:54 Patient left the ED. tw5 Signatures: Honey Richardson tw5 Clarita Vargas kc5
== END 2021-12-17 23:54 | disposition left against medical advice (07) ==
LOC: ER 22:44
DX: Z02.9 Encounter for administrative examinations, unspecified (principal)

== ENCOUNTER 2025-01-28 11:03 | Emergency (ER) | payer SELFPAY ==
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
--- NOTE | 2025-01-28 12:58 | EDPHYS ---
Physician Documentation [facility] Name: Melissa Tran Age: 44 yrs Sex: Female : 1980 Arrival Date: 01/28/2025 Time: 11:03 Bed 11 Private MD: ED Physician Yasir Allen HPI: 01/28 11:35 This 44 yrs old Female presents to ER via Ambulatory with complaints of Abscess. kb 11:35 Patient is a 44-year-old female who presents for a draining wound to lateral aspect of kb right thigh/hip that started 5 days ago. States she had a culture done on Tuesday, got the report back today that was positive for staph. PCP called in an antibiotic that is being filled at [facility] at this time. States she came in to see if there was anything else that needed to be done. Denies fever.. 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 - Infectious Disease History:: Denies. - Social history:: Smoking status: Patient denies any tobacco usage or history of. ROS: 11:35 Constitutional: As per HPI kb Exam: 11:35 Constitutional: This is a well developed, well nourished patient who is awake, alert, kb and in no acute distress. Head/Face: Normocephalic, atraumatic. ENT: Moist Mucous membranes Cardiovascular: Regular rate Respiratory: Respirations even and unlabored. No increased work of breathing. Talking in full sentences MS/ Extremity: Pulses equal, no cyanosis. Neurovascular intact. Full, normal range of motion. Neuro: Awake and alert, GCS 15, oriented to person, place, time, and situation. 12:58 Skin: abscess, that is small, that is moderate sized, of the lateral aspect of left kb thigh, with drainage, that is purulent, Vital Signs: 11:24 BP 107 / 81; Pulse 68; Resp 16; Temp 98.3; Pulse Ox 100% on R/A; Weight 74.39 kg; hb Height 5 ft. 6 in. ; Pain 8/10; 11:24 Body Mass Index 26.47 (74.39 kg, 167.64 cm) hb 11:24 Pain Scale: Adult hb MDM: 11:10 Medical Screening Exam initiated kb 11:36 Differential diagnosis: abscess, allergic reaction, cellulitis, insect bite. Data kb reviewed: vital signs, nurses notes. Historians other than the Patient: Parent: mother. 12:56 Test considered but Not performed: Labs: cbc, cmp considered but pt nontoxic in kb appearance, afebrile. Counseling: I had a detailed discussion with the patient and/or guardian regarding the historical points, exam findings, and any diagnostic results supporting the discharge/admit diagnosis, the need for outpatient follow up, a family practitioner, to return to the emergency department if symptoms worsen or persist or if there are any questions or concerns that arise at home. Administered Medications: No medications were administered Disposition: 18:22 I was immediately available on-site in the Emergency Department for consultation in the ms3 care of the patient. Disposition Summary: 01/28/25 12:57 Discharge Ordered Notes: Location: Home kb Condition: Stable kb Diagnosis - Cutaneous abscess of left lower limb kb Followup: kb - With: Emergency Department - When: As needed - Reason: Worsening of condition Followup: kb - With: Private Physician - When: 2 - 3 days - Reason: Recheck today's complaints, Continuance of care, Re-evaluation by your physician Discharge Instructions: - Discharge Summary Sheet kb - Skin Abscess, [id number] kb Forms: - Medication Reconciliation Form kb - Antibiotic Education kb - Prescription Opioid Use kb - Patient Portal Instructions kb - Leadership Thank You Letter kb Signatures: Lillie Wilson FNP-C FNP-Sydni Sauceda, RN RN Yasir Allen, DO ms3
[2025-01-28 13:05] VITALS: BP 107/81; TEMP 98.3; O2SAT 100
== END 2025-01-28 13:01 | disposition home or self-care (01) ==
LOC: ER 11:03
DX: L02.416 Cutaneous abscess of left lower limb (principal)
CPT/HCPCS: 99282